=== PATIENT | male | born 1960 | race Hispanic/Latino ===

== ENCOUNTER 2019-02-05 13:04 | Inpatient (IN) | payer OTHER ==
[2019-02-05] MEDS ORDERED: Clindamycin/D5W 900 mg/50 ml Premix Bag ONE (13:45)
[2019-02-05] MEDS ORDERED: Ondansetron PF 4 MG/2 ML Vial ONE (13:45)
[2019-02-05 13:52] LABS: Hemoglobin 11.6 g/dL (14.0-18.0); Mean Corpuscular HGB CONC 32.3 g/dL (32.0-36.0); Mean Corpuscular Hemoglobin 28.2 pg (27.0-31.0); Mean Corpuscular Volume 87.4 fL (78.0-98.0); Mean Platelet Volume 7.5 fL (7.4-10.4); Platelet Count 347 thou/uL (130-400); RBC Distribution Width 13.4 % (11.5-14.5); Red Blood Cell (RBC) Count 4.12 mill/uL (4.70-6.10); White Blood Cell (WBC) Count 21.4 thou/uL (4.8-10.8)
[2019-02-05] MEDS ORDERED: Piperacillin/Tazobactam 4.5 GM in Sodium Chloride 0.9% 100 ML IVPB SCH (14:00)
[2019-02-05] MEDS ORDERED: Vancomycin HCl 1.5 GM in Sodium Chloride 0.9% 250 ML 300 ML IVPB SCH (14:00)
[2019-02-05 14:06] LABS: ALT (SGPT) 12 U/L (8-55); AST (SGOT) 14 U/L (5-34); Albumin 4.1 g/dL (3.5-5.0); Alkaline Phosphatase 75 U/L (40-150); Anion Gap 19 mmol/L (10-20); BUN (Urea Nitrogen) 35 mg/dL (8.4-25.7); Band 20 % (5-11); Bilirubin, Total 0.6 mg/dL (0.2-1.2); Calc. Creatinine Clearance 0 mL/min (70-130); Calcium 9.1 mg/dL (7.8-10.44); Carbon Dioxide 21 mmol/L (22-29); Chloride 100 mmol/L (98-107); Estimated GFR-MDRD 50; Globulin 3.3 g/dL (2.4-3.5); Glucose 161 mg/dL (70-105); Lymphocytes 5 % (21-51); MDiff Complete? YES; Metamyelocyte 4 % (0-0); Monocytes 1 % (0-10); Neutrophil 69 % (42-75); Platelet Morphology Comment Appears Adequate; Polychromasia SLIGHT = 2-3 cells (100X) (0-2/hpf); Potassium 4.3 mmol/L (3.5-5.1); Protein, Total 7.4 g/dL (6.0-8.3); Reactive Lymphocytes 1 % (0-10); Sodium 136 mmol/L (136-145)
[2019-02-05] MEDS ORDERED: Acetaminophen 500 MG TAB ONE (14:54)
[2019-02-05] MEDS ORDERED: Promethazine HCl 25 MG/ML VIAL ONE (15:11)
[2019-02-05] MEDS ORDERED: Ibuprofen 800 MG TAB ONE (17:10)
[2019-02-05 17:47] LABS: Lactic Acid 1.2 mmol/L (0.5-2.2)
[2019-02-05] MEDS ORDERED: Norepinephrine 8 MG/0.9% NS 250 ML ONE (19:01)
--- NOTE | 2019-02-05 20:34 | RAD ---
FRONTAL RADIOGRAPH CHEST: 02/05/19 COMPARISON: None. HISTORY: Hypotension, sepsis. FINDINGS: Right sided vascular catheter is present, distal tip overlying the region of the right atrium. Heart and mediastinal contours are grossly unremarkable. There is mild pulmonary vascular prominence. There is mild hazy density in the medial left lung base, nonspecific. No lobar consolidation or alveolar e sarah. No pneumothorax. IMPRESSION: Right vascular catheter as above. POS: OFF
[2019-02-05] MEDS ORDERED: Ondansetron ODT 4 MG TAB PO PRN (21:08)
[2019-02-05] MEDS ORDERED: Ondansetron PF 4 MG/2 ML Vial IVP PRN (21:08)
[2019-02-05 22:10] LABS: Bilirubin Negative (Negative); Blood, Urine Negative (Negative); Clarity CLEAR (Clear); Glucose, Urine (Dipstick) Negative (Negative); Leukocyte Negative (Negative); Nitrite Negative (Negative); Protein, Urine (Dipstick) 100 mg/dL (Neg-Trace); Specific Gravity, Urine 1.011 (1.002-1.036); Urobilinogen 0.2 mg/dL (0.2-1.0); pH, Urine 5.5 (5.0-9.0)
[2019-02-05 22:11] LABS: Bacteria/HPF None Seen HPF (None Seen); Hyaline Casts/LPF 4-6 HYALINE CAST LPF (0-3 Hyaline); Pathc Cast-AUWi Flag 0.54 (0-2.49); RBC/HPF 0-3 HPF (0-3); Squamous Epithelial None Seen HPF (0-3); WBC/HPF 0-3 HPF (0-3)
[2019-02-05 23:00] VITALS: BMI 26.8
[2019-02-05] MEDS: Sodium Chloride 0.9% 1,000 ML IV SCH (23:08)
[2019-02-05] MEDS ORDERED: Norepinephrine 8 MG/250 ML BAG IVPB PRN (23:20)
[2019-02-06] MEDS: Piperacillin/Tazobactam 4.5 GM in Sodium Chloride 0.9% 100 ML IVPB SCH ×5 (00:09→23:16)
[2019-02-06] MEDS: Acetaminophen 325 MG TAB PO PRN ×2 (01:39→23:18)
[2019-02-06] MEDS: Vancomycin HCl 1.25 GM in Sodium Chloride 0.9% 250 ML 250 ML IVPB SCH ×2 (02:59→14:58)
[2019-02-06 04:44] LABS: #Lymphocytes 0.8 thou/uL (1.20-3.40); #Monocytes 0.5 thou/uL (0.11-0.59); #Neutrophils 13.4 thou/uL (1.40-6.50); %Basophils 0.3 % (0.0-1.0); %Eosinophils 0.2 % (0.0-10.0); %Lymphocytes 5.3 % (21.0-51.0); %Monocytes 3.2 % (0.0-10.0); %Neutrophils 90.9 % (42.0-75.0); Hemoglobin 9.5 g/dL (14.0-18.0); Mean Corpuscular HGB CONC 32.2 g/dL (32.0-36.0); Mean Corpuscular Hemoglobin 28.4 pg (27.0-31.0); Mean Corpuscular Volume 88.1 fL (78.0-98.0); Mean Platelet Volume 7.6 fL (7.4-10.4); Platelet Count 284 thou/uL (130-400); RBC Distribution Width 13.6 % (11.5-14.5); Red Blood Cell (RBC) Count 3.35 mill/uL (4.70-6.10); White Blood Cell (WBC) Count 14.7 thou/uL (4.8-10.8)
[2019-02-06] MEDS ORDERED: Dextrose 5% in Water 1,000 ML IV PRN (04:55)
[2019-02-06] MEDS ORDERED: Dextrose 50% Abboject 50 ML SYRINGE SLOW IVP PRN (04:55)
[2019-02-06 05:06] LABS: Anion Gap 10 mmol/L (10-20); BUN (Urea Nitrogen) 33 mg/dL (8.4-25.7); Calc. Creatinine Clearance 85 mL/min (70-130); Carbon Dioxide 25 mmol/L (22-29); Chloride 110 mmol/L (98-107); Estimated GFR-MDRD 64; Glucose 195 mg/dL (70-105); Potassium 3.9 mmol/L (3.5-5.1); Sodium 141 mmol/L (136-145)
[2019-02-06] MEDS: HumaLOG 300 UNITS/3 ML VIAL SC PRN ×2 (05:54→12:20)
--- NOTE | 2019-02-06 08:15 | HP ---
PRIMARY CARE DOCTOR: The patient is an inmate. CODE STATUS: Full code. TIME OF EVALUATION: 10 p.m. CHIEF COMPLAINT: Right leg cellulitis. HISTORY OF PRESENT ILLNESS: This is a 58-year-old male patient with past medical history of coronary artery disease, status post stent, diabetes type 2, cirrhosis of the liver with hepatitis B and C treated and cured, esophageal varices, and hypertension, came to the hospital after having right lower extremity redness, tenderness, decreased range of motion due to pain, and infection. The patient also reported some subjective fever, chills, and nausea. Symptoms are severe, decrease in his ADLs. Symptoms have been present for 1 day. REVIEW OF SYSTEMS: CONSTITUTIONAL: The patient had fever, chills, generalized weakness. RESPIRATORY: No cough, sputum production, or shortness of breath. CARDIOVASCULAR: No chest pain or palpitation. GASTROINTESTINAL: Nausea. No vomiting, diarrhea, or abdominal pain. FIRER WATERTENDER: No dizziness, headache, or feeling lightheaded. GENITOURINARY: No burning on urination. EXTREMITIES: The patient has right lower extremity redness, swelling, tenderness, and pain. All other systems were reviewed and negative except for the findings mentioned above. PAST MEDICAL HISTORY: As mentioned in the HPI. SURGICAL HISTORY: Surgery to groin for gangrene. PSYCHIATRIC HISTORY: No previous psych history. SOCIAL HISTORY: No alcohol. 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 Former tobacco user, smoked cigarettes, quit in 2010. FAMILY HISTORY: Reviewed and noncontributory for current presentation. KNOWN ALLERGIES: No known drug allergies. REPORTED MEDICATIONS: 1. Aspirin. 2. Chlorpheniramine. 3. Furosemide. 4. Gemfibrozil. 5. Lisinopril. 6. Loratadine. 7. Minocycline. 8. Novolin. 9. Metformin. 10. Ibuprofen. PHYSICAL EXAMINATION: VITAL SIGNS: On presentation, blood pressure 118/58 with heart rate 103, respiratory rate was 16, temperature 100.2, pain was 0/10, oxygen saturation was 100 on room air. GENERAL APPEARANCE: The patient is alert and oriented, in mild distress, likely secondary to fever. HEENT: Eyes; normal conjunctivae. Moist oral mucosa. Anicteric. NECK: No JVD. RESPIRATORY: Bilateral air entry. No rales. No wheezes. Symmetric expansion. CARDIOVASCULAR: The patient is mildly tachycardic. Normal rhythm. No murmurs. No gallop. Bilateral leg edema, mostly on the right. ABDOMEN: Soft. Normal bowel sounds. MUSCULOSKELETAL: Baseline range of motion and strength. No tenderness except for the right lower extremity as described in HPI. The patient has redness, decreased range of motion, tenderness, inability to ambulate due to leg pain. SKIN: Warm, intact. No pallor. No rash. No redness except for the findings described in the musculoskeletal system. Peripheral pulses are present. Capillary refill seems to intact. NEUROLOGIC: No evidence of any new focal weakness. Baseline speech. Cranial nerves seems to be intact. PSYCHIATRY: The patient is in good mood. No anxiety. Optimum judgment. DIAGNOSTIC DATA: EKG was reviewed. The patient has a normal sinus rhythm with a rate of 99, TX 138, QRS 70, QT corrected 446. Chest x-ray was reviewed. No abnormalities seen. The patient has a right subclavian with tip close to right atrium. LABORATORY DATA: Labs were reviewed. The patient presented with white count 21.4, hemoglobin 11.6, MCV 87.4, platelet count 347 with bandemia of 20. Sodium 136, potassium 4.3, chloride 100, carbon dioxide 21, anion gap 19, BUN 35; creatinine 1.46, no previous values to compare; GFR 50, glucose 161. Lactic acid 3.2, repeat one 1.2. LFTs were negative. UA was done, it was normal. ASSESSMENT AND PLAN: The patient will be placed in the hospital with following medical problems. 1. Sepsis. The patient presented with fever and leukocytosis of 21.4, initially in respiratory failure, reason likely secondary to severe chills, this has resolved. The patient has been started on antibiotics and we will continue for now, follow cultures, adjust treatment as per sensitivity. 2. Possible acute kidney injury. There is no previous values to compare how was the creatinine before. The patient is receiving IV fluids. We will monitor. If not improving, might need to consult Nephrology for assistance with outpatient. 3. Uncontrolled diabetes with blood sugar 161. We will place the patient on sliding scale for optimal control. The patient is hyperglycemic. 4. Normocytic anemia, seems to be chronic. There is a drop in hemoglobin from the first draw to the second one; however, seems to be dilutional. We will monitor. We will treat accordingly. 5. Lactic acidosis, likely secondary to the initial presentation of sepsis, repeat one is normal. 6. Deep venous thrombosis prophylaxis. Job ID: [id number]
[2019-02-06] MEDS: Enoxaparin Sodium 40 MG/0.4 ML SYRINGE SC SCH (10:39)
[2019-02-06] MEDS: Sodium Chloride 0.9% 1,000 ML IV SCH ×3 (10:39→16:30)
--- NOTE | 2019-02-06 14:58 | PDOC.PN ---
- Subjective Encounter Start Date: 02/06/19 Encounter Start Time: 14:56 Subjective: feels better.no new complaints. eating better.no leg pain -: no N/V/D.no CP/SOB - Objective Resuscitation Status - Order Detail: 02/05/19 21:08 Resuscitation Status Routine Resuscitation Status: FULL: Full Resuscitation MAR Reviewed: Yes Vital Signs & Weight: Vital Signs (12 hours) Temp Pulse Ox 02/06/19 13:00 98.6 F 02/06/19 08:00 100.5 F H 100 02/06/19 04:00 98 F Weight Admit Weight 192 lb 7.417 oz Weight 192 lb 7.417 oz Most Recent Monitor Data Heart Rate from ECG 80 NIBP 120/63 NIBP BP-Mean 82 Respiration from ECG 15 SpO2 93 I&O: 02/05/19 02/06/19 02/07/19 06:59 06:59 06:59 Intake Total 1884 400 Output Total 450 1000 Balance 1434 -600 Result Diagrams: 02/06/19 04:20 02/06/19 04:20 Additional Labs: Accuchecks 02/06/19 12:19 POC Glucose 422 H Microbiology 02/05/19 13:39 Venous blood - Left Hand Blood Culture - Preliminary Specimen has been received and culture in progress. No Growth to date. 02/05/19 13:35 Venous blood - Right Hand Blood Culture - Preliminary Specimen has been received and culture in progress. No Growth to date. Laboratory Tests 02/05/19 02/05/19 02/05/19 13:35 13:35 13:35 WBC 21.4 H Creatinine 1.46 H Lactic Acid 3.2 H 02/05/19 02/06/19 02/06/19 17:16 04:20 04:20 WBC 14.7 H Creatinine 1.17 Lactic Acid 1.2 Phys Exam - Physical Examination Constitutional: NAD HEENT: PERRLA, moist MMs, sclera anicteric, oral pharynx no lesions Neck: no nodes, no JVD, supple, full ROM Respiratory: no wheezing, no rales, no rhonchi, clear to auscultation bilateral Cardiovascular: RRR, no significant murmur, gallop Gastrointestinal: soft, non-tender, positive bowel sounds Musculoskeletal: pulses present, edema present R leg erythema all around on calf & lower leg w edema & warmth-receeding Neurological: non-focal, normal sensation, moves all 4 limbs Psychiatric: normal affect, A&O x 3 Skin: no rash Dx/Plan (1) Sepsis Code(s): A41.9 - SEPSIS, UNSPECIFIED ORGANISM Status: Acute Comment: due to cellulitis. On IV ABx empirically.broad spectrum.cont. Monitor Cx (2) Cellulitis, leg Code(s): L03.119 - CELLULITIS OF UNSPECIFIED PART OF LIMB Status: Acute Qualifiers: Laterality: right Qualified Code(s): L03.115 - Cellulitis of right lower limb Comment: as #1 (3) MASOUD (acute kidney injury) Code(s): N17.9 - ACUTE KIDNEY FAILURE, UNSPECIFIED Status: Acute Comment: improving. on IVF. reduce rate .monitor.avoid nephrotoxins. Hold Metformin (4) Septic shock Code(s): A41.9 - SEPSIS, UNSPECIFIED ORGANISM; R65.21 - SEVERE SEPSIS WITH SEPTIC SHOCK Status: Acute Comment: Improved. Off of levophed. Monitor..cont IVF (5) DM2 (diabetes mellitus, type 2) Status: Acute (6) HTN (hypertension) Code(s): I10 - ESSENTIAL (PRIMARY) HYPERTENSION Status: Chronic (7) H/O type B viral hepatitis Code(s): Z86.19 - PERSONAL HISTORY OF OTHER INFECTIOUS AND PARASITIC DISEASES Status: Chronic Comment: s/p Rx in past (8) Cirrhosis Code(s): K74.60 - UNSPECIFIED CIRRHOSIS OF LIVER Status: Chronic Qualifiers: Ascites presence: without ascites Comment: stable (9) H/O esophageal varices Code(s): Z87.19 - PERSONAL HISTORY OF OTHER DISEASES OF THE DIGESTIVE SYSTEM Status: Chronic Comment: stable - Plan continue antibiotics, DVT proph w/SCDs Hold lasix and metformin due to masoud.restart lisinopril as BP higher from -: tomorrow.monitor labs -: Ok to transfer to [facility]. HD stable. -: iss w accuchecks for diabetes * . Review of Systems - Review of Systems Constitutional: fever, chills. negative: sweats, weakness, malaise, other Respiratory: negative: Cough, Dry, Shortness of Breath, Hemoptysis, SOB with Excertion, Pleuritic Pain, Sputum, Wheezing Cardiovascular: edema. negative: chest pain, palpitations, orthopnea, paroxysmal nocturnal dyspnea, light headedness, other Gastrointestinal: negative: Nausea, Vomiting, Abdominal Pain, Diarrhea, Constipation, Melena, Hematochezia, Other Genitourinary: negative: Dysuria, Frequency, Incontinence, Hematuria, Retention , Other Musculoskeletal: negative: Neck Pain, Shoulder Pain, Arm Pain, Back Pain, Hand Pain, Leg Pain, Foot Pain, Other Neurological: negative: Weakness, Numbness, Incoordination, Change in Speech, Confusion, Seizures, Other - Medications/Allergies Allergies/Adverse Reactions: Allergies Allergy/AdvReac Type Severity Reaction Status Date / Time No Known Allergies Allergy Unverified 02/05/19 13:50 Medications: Current Medications Acetaminophen (Tylenol) 650 mg PO Q4H PRN PRN Reason: Headache/Fever/Mild Pain (1-3) Last Admin: 02/06/19 01:39 Dose: 650 mg Aspirin (Ecotrin) 81 mg PO DAILY [facility] Dextrose/Water (Dextrose 50%) 25 gm SLOW IVP PRN PRN PRN Reason: Hypoglycemia Enoxaparin Sodium (Lovenox) 40 mg SC 0900 [facility] Last Admin: 02/06/19 10:39 Dose: 40 mg Glucagon (Glucagon) 1 mg IM PRN PRN PRN Reason: Hypoglycemia Piperacillin Sod/Tazobactam (Sod 4.5 gm/ Sodium Chloride) 100 mls @ 200 mls/hr IVPB Q6HR [facility] Last Admin: 02/06/19 10:39 Dose: 100 mls Sodium Chloride (Normal Saline 0.9%) 1,000 mls @ 125 mls/hr IV .Q8H [facility] Last Admin: 02/06/19 10:41 Dose: 1,000 mls Vancomycin HCl 1.25 gm/ Sodium (Chloride) 250 mls @ 166.667 mls/hr IVPB 0300, 1500 [facility] Last Admin: 02/06/19 02:59 Dose: 250 mls Norepinephrine Bitartrate (Levophed) 250 mls @ 0 mls/hr IVPB INF PRN; Protocol PRN Reason: Blood Pressure Dextrose/Water (D5w) 1,000 mls @ 0 mls/hr IV .Q0M PRN PRN Reason: Hypoglycemia Insulin Human Lispro (Humalog) 0 units SC .MILD SLIDING SCALE PRN PRN Reason: Mild Correctional Scale Last Admin: 02/06/19 12:20 Dose: 6 unit Insulin Human NPH (Humulin N) 10 unit SC QAM [facility] Lisinopril (Zestril) 20 mg PO DAILY [facility] Miscellaneous Medication (Pharmacy To Dose) 1 each IVPB PRN PRN PRN Reason: PHARMACY TO DOSE Ondansetron HCl (Zofran Odt) 4 mg PO Q6H PRN PRN Reason: Nausea/Vomiting Ondansetron HCl (Zofran) 4 mg IVP Q6H PRN PRN Reason: Nausea/Vomiting
--- NOTE | 2019-02-06 23:00 | CON ---
DATE OF CONSULTATION: HISTORY OF PRESENT ILLNESS: This is a 58-year-old male who has been complaining of erythema and discomfort in his legs for the past couple of days. He said he had fever with this and some chills. He says he is improving now. He has been started on antibiotics. The outline of the erythematous area on his extremity shows regression of the erythema. PAST MEDICAL HISTORY: Remarkable for 1. Coronary stenting in the past. 2. Diabetes. 3. Cirrhosis. 4. History of hepatitis B and C. 5. History of varices. 6. 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 This was in the early 90s [place]. FAMILY HISTORY: Negative for lung disease in early age. SOCIAL HISTORY: He is in the [facility]. He is not smoking now for 8 years. He used to use cocaine, says he does not now. REVIEW OF SYSTEMS: A 10-point review of systems is otherwise negative. CURRENT MEDICATIONS: Medications prior to admission include; 1. Aspirin. 2. Chlorpheniramine. 3. Lasix. 4. Gemfibrozil. 5. Lisinopril. 6. Loratadine. 7. Minocycline. 8. Novolin insulin. 9. Metformin. 10. Ibuprofen. PHYSICAL EXAMINATION: GENERAL: Very pleasant inmate. No distress. VITAL SIGNS: Heart rate 80, respiratory rate 16, blood pressure 130/69. HEENT: Pupils are equal. Sclerae are anicteric. Extraocular movements are full. NECK: Supple. No lymphadenopathy. LUNGS: Clear. HEART: Regular rhythm. S1 and S2 are normal. No gallop is heard. ABDOMEN: Soft and nontender. He has an SCD on his left lower extremity. His right lower extremity, below the knee, he has area of erythema outlined with a pen. IMPRESSION: 1. Cellulitis of his left lower extremity. 2. History of diabetes. 3. History of Theodore gangrene. 4. History of coronary artery disease. 5. History of drug use in the past. 6. Tobacco use in the past with no clinical evidence of chronic obstructive pulmonary disease. 7. History of hepatitis with cirrhosis. 8. History of esophageal varices with no bleeding this admission. Microbiology has been reviewed. Blood cultures are negative. His lab work is remarkable for anemia with a hemoglobin went from 11.6 to 9.5. I suspect this is anemia of chronic disease. I would be happy to follow with the other physicians caring for him. He is stable to move out of the Critical Care Unit. Job ID: [id number] MTDD
[2019-02-07 02:19] LABS: Vancomycin, Trough 14.8 ug/mL
[2019-02-07] MEDS: Vancomycin HCl 1.5 GM in Sodium Chloride 0.9% 250 ML 300 ML IVPB SCH ×2 (03:23→16:53)
[2019-02-07] MEDS: Sodium Chloride 0.9% 1,000 ML IV SCH (03:25)
[2019-02-07] MEDS: Vancomycin HCl 1.25 GM in Sodium Chloride 0.9% 250 ML 250 ML IVPB SCH (04:34)
[2019-02-07] MEDS: Piperacillin/Tazobactam 4.5 GM in Sodium Chloride 0.9% 100 ML IVPB SCH ×4 (05:20→23:24)
[2019-02-07] MEDS: HumaLOG 300 UNITS/3 ML VIAL SC PRN ×3 (05:23→16:54)
[2019-02-07] MEDS: Enoxaparin Sodium 40 MG/0.4 ML SYRINGE SC SCH (09:45)
[2019-02-07] MEDS: Lisinopril 20 MG TAB PO SCH (09:45)
[2019-02-07] MEDS: Aspirin 81 mg Enteric Coated Tablet PO SCH (09:46)
[2019-02-07] MEDS: NPH, Human Insulin Isophane 300 UNIT/3 ML VIAL SC SCH (09:46)
[2019-02-07] MEDS: Acetaminophen 325 MG TAB PO PRN (11:51)
--- NOTE | 2019-02-07 13:55 | PRG ---
DATE OF SERVICE: 02/07/2019 SUBJECTIVE: Marky Morrow continues to have fewer complaints regarding his leg. OBJECTIVE: VITAL SIGNS: He did have a temperature this morning up to 101, heart rate is 99, blood pressure 146/75, and respiratory rate is 20. LUNGS: Clear. HEART: Regular rhythm. S1 and S2 are normal. ABDOMEN: Soft. EXTREMITIES: He has less erythema in his right lower extremity. LABORATORY DATA: There is no CBC today. His glucoses in the last 24 hours have ranged from 173 to 422. IMPRESSION: 1. Cellulitis, still with fever. 2. Diabetes. 3. History of Theodore gangrene. 4. History of hepatitis, poorly treated. 5. History of coronary artery disease. 6. History of cirrhosis. There is nothing to suggest that he has spontaneous bacterial peritonitis clinically. PLAN: He appears to be clinically improving other than the fever. Continue antimicrobial therapy. Pulmonary Medicine will sign off. Job ID: [id number]
--- NOTE | 2019-02-07 14:21 | ULT ---
Exam: Right lower extremity venous ultrasound with Doppler HISTORY: Evaluate for thrombus. COMPARISON: None TECHNIQUE: Grayscale, color flow, Doppler imaging and spectral waveform analysis performed of the rig ht lower extremity venous system FINDINGS: There is compressibility, presence of flow and augmentation in the common femoral vein, femoral vein and popliteal vein. There is flow in the greater saphenous vein, profunda femoral vein. There is flow in the posterior tibial vein. IMPRESSION: No evidence of thrombus in the right lower extremity deep venous system
--- NOTE | 2019-02-07 15:31 | PDOC.PN ---
- Subjective Encounter Start Date: 02/07/19 Encounter Start Time: 15:31 Subjective: feels weak and walker sbeen having fever -: Leg about the same -: no N/V.has some loose stools.no abd pain.good appetite - Objective Resuscitation Status - Order Detail: 02/05/19 21:08 Resuscitation Status Routine Resuscitation Status: FULL: Full Resuscitation MAR Reviewed: Yes Vital Signs & Weight: Vital Signs (12 hours) Temp Pulse Resp BP BP Pulse Ox 02/07/19 11:00 101.1 F H 99 20 170/77 H 95 02/07/19 09:45 146/75 H 02/07/19 08:00 98.7 F 88 18 146/75 H 98 02/07/19 04:30 99.2 F 82 16 155/70 H 97 Weight Admit Weight 192 lb 7.417 oz Weight 192 lb 7.417 oz Most Recent Monitor Data Heart Rate from ECG 80 NIBP 130/69 NIBP BP-Mean 89 Respiration from ECG 19 SpO2 93 I&O: 02/06/19 02/07/19 02/08/19 06:59 06:59 06:59 Intake Total 1884 1650 420 Output Total 450 1200 Balance 1434 450 420 Result Diagrams: 02/06/19 04:20 02/06/19 04:20 Additional Labs: Accuchecks 02/07/19 02/07/19 02/06/19 11:41 05:21 20:15 POC Glucose 229 H 193 H 240 H 02/06/19 16:53 POC Glucose 173 H Microbiology 02/05/19 21:56 Urine voided Urine Culture - Final NO GROWTH AT 36 HOURS 02/05/19 21:56 Urine voided Urine Culture - Preliminary NO GROWTH AT 12 HOURS 02/05/19 13:39 Venous blood - Left Hand Blood Culture - Preliminary Specimen has been received and culture in progress. No Growth to date. 02/05/19 13:39 Venous blood - Left Hand Blood Culture - Preliminary NO GROWTH AT 48 HOURS 02/05/19 13:35 Venous blood - Right Hand Blood Culture - Preliminary Specimen has been received and culture in progress. No Growth to date. 02/05/19 13:35 Venous blood - Right Hand Blood Culture - Preliminary NO GROWTH AT 48 HOURS Phys Exam - Physical Examination tired looking HEENT: PERRLA, moist MMs, sclera anicteric, oral pharynx no lesions Neck: no nodes, no JVD, supple, full ROM Respiratory: no wheezing, no rales, no rhonchi, clear to auscultation bilateral Cardiovascular: RRR, no significant murmur Gastrointestinal: soft, non-tender, no distention, positive bowel sounds Musculoskeletal: pulses present, edema present slightly more swollen in leg.erythem abetter. still warm Neurological: non-focal, normal sensation, moves all 4 limbs Psychiatric: normal affect, A&O x 3 Skin: no rash Dx/Plan (1) Sepsis Code(s): A41.9 - SEPSIS, UNSPECIFIED ORGANISM Status: Acute Comment: due to cellulitis. On IV ABx empirically.broad spectrum.cont. Monitor Cx (2) Cellulitis, leg Code(s): L03.119 - CELLULITIS OF UNSPECIFIED PART OF LIMB Status: Acute Qualifiers: Laterality: right Qualified Code(s): L03.115 - Cellulitis of right lower limb Comment: as #1 (3) MASOUD (acute kidney injury) Code(s): N17.9 - ACUTE KIDNEY FAILURE, UNSPECIFIED Status: Acute Comment: improving. on IVF. reduce rate .monitor.avoid nephrotoxins. Hold Metformin (4) Septic shock Code(s): A41.9 - SEPSIS, UNSPECIFIED ORGANISM; R65.21 - SEVERE SEPSIS WITH SEPTIC SHOCK Status: Acute Comment: Improved. Off of levophed. Monitor..cont IVF (5) DM2 (diabetes mellitus, type 2) Status: Acute (6) HTN (hypertension) Code(s): I10 - ESSENTIAL (PRIMARY) HYPERTENSION Status: Chronic (7) H/O type B viral hepatitis Code(s): Z86.19 - PERSONAL HISTORY OF OTHER INFECTIOUS AND PARASITIC DISEASES Status: Chronic Comment: s/p Rx in past (8) Cirrhosis Code(s): K74.60 - UNSPECIFIED CIRRHOSIS OF LIVER Status: Chronic Qualifiers: Ascites presence: without ascites Comment: stable (9) H/O esophageal varices Code(s): Z87.19 - PERSONAL HISTORY OF OTHER DISEASES OF THE DIGESTIVE SYSTEM Status: Chronic Comment: stable - Plan continue antibiotics, respiratory therapy, DVT proph w/SCDs Check C.Diff.add florastor for ABx associated diarrhea -: Doppler checked and negative for RLE DVT -: cont ABx and monitor clinical response. -: supportive care.BP high -add BB given h/o varices -: am labs.cbc,bmp * .IVF stopped due to Potential for flui dOL given h/o Liver cirrhosis. Lasix on hold due to MASOUD on presentation * restart lasix form tomorrow am.monitor renal Fx Review of Systems - Review of Systems Constitutional: fever, chills, weakness, malaise Respiratory: negative: Cough, Dry, Shortness of Breath, Hemoptysis, SOB with Excertion, Pleuritic Pain, Sputum, Wheezing Cardiovascular: negative: chest pain, palpitations, orthopnea, paroxysmal nocturnal dyspnea, edema, light headedness, other Gastrointestinal: Diarrhea. negative: Nausea, Vomiting, Abdominal Pain, Constipation, Melena, Hematochezia, Other Genitourinary: negative: Dysuria, Frequency, Incontinence, Hematuria, Retention , Other Musculoskeletal: negative: Neck Pain, Shoulder Pain, Arm Pain, Back Pain, Hand Pain, Leg Pain, Foot Pain, Other Skin: negative: Rash, Lesions, Erich, Bruising, Other Neurological: negative: Weakness, Numbness, Incoordination, Change in Speech, Confusion, Seizures, Other - Medications/Allergies Allergies/Adverse Reactions: Allergies Allergy/AdvReac Type Severity Reaction Status Date / Time No Known Allergies Allergy Unverified 02/05/19 13:50 Medications: Current Medications Acetaminophen (Tylenol) 650 mg PO Q4H PRN PRN Reason: Headache/Fever/Mild Pain (1-3) Last Admin: 02/07/19 11:51 Dose: 650 mg Aspirin (Ecotrin) 81 mg PO DAILY [facility] Last Admin: 02/07/19 09:46 Dose: 81 mg Dextrose/Water (Dextrose 50%) 25 gm SLOW IVP PRN PRN PRN Reason: Hypoglycemia Enoxaparin Sodium (Lovenox) 40 mg SC 0900 [facility] Last Admin: 02/07/19 09:45 Dose: 40 mg Glucagon (Glucagon) 1 mg IM PRN PRN PRN Reason: Hypoglycemia Piperacillin Sod/Tazobactam (Sod 4.5 gm/ Sodium Chloride) 100 mls @ 200 mls/hr IVPB Q6HR [facility] Last Admin: 02/07/19 11:52 Dose: 100 mls Dextrose/Water (D5w) 1,000 mls @ 0 mls/hr IV .Q0M PRN PRN Reason: Hypoglycemia Vancomycin HCl 1.5 gm/ Sodium (Chloride) 300 mls @ 200 mls/hr IVPB 0400,1600 [facility] Last Admin: 02/07/19 03:23 Dose: 300 mls Insulin Human Lispro (Humalog) 0 units SC .MILD SLIDING SCALE PRN PRN Reason: Mild Correctional Scale Last Admin: 02/07/19 11:52 Dose: 3 unit Insulin Human NPH (Humulin N) 10 unit SC QAM [facility] Last Admin: 02/07/19 09:46 Dose: 10 unit Lisinopril (Zestril) 20 mg PO DAILY [facility] Last Admin: 02/07/19 09:45 Dose: 20 mg Miscellaneous Medication (Pharmacy To Dose) 1 each IVPB PRN PRN PRN Reason: PHARMACY TO DOSE Ondansetron HCl (Zofran Odt) 4 mg PO Q6H PRN PRN Reason: Nausea/Vomiting Ondansetron HCl (Zofran) 4 mg IVP Q6H PRN PRN Reason: Nausea/Vomiting Saccharomyces Boulardii (Florastor) 250 mg PO BID [facility]
[2019-02-07] MEDS ORDERED: Sodium Chloride 0.9% 1,000 ML IV SCH (15:45)
[2019-02-07] MEDS: Propranolol 10 MG TAB PO SCH (19:46)
[2019-02-07] MEDS: Saccharomyces boulardii 250 MG CAP PO SCH (19:46)
[2019-02-08] MEDS: Vancomycin HCl 1.5 GM in Sodium Chloride 0.9% 250 ML 300 ML IVPB SCH (04:08)
[2019-02-08] MEDS: Piperacillin/Tazobactam 4.5 GM in Sodium Chloride 0.9% 100 ML IVPB SCH ×2 (06:29→12:39)
[2019-02-08] MEDS: HumaLOG 300 UNITS/3 ML VIAL SC PRN ×3 (06:29→17:52)
[2019-02-08 06:46] LABS: #Eosinphils 0.2 thou/uL (0.0-0.7); #Lymphocytes 1.9 thou/uL (1.20-3.40); #Monocytes 0.7 thou/uL (0.11-0.59); %Basophils 0.1 % (0.0-1.0); %Eosinophils 1.6 % (0.0-10.0); %Lymphocytes 16.4 % (21.0-51.0); %Monocytes 6.1 % (0.0-10.0); %Neutrophils 75.8 % (42.0-75.0); Hemoglobin 8.8 g/dL (14.0-18.0); Mean Corpuscular HGB CONC 32.8 g/dL (32.0-36.0); Mean Corpuscular Hemoglobin 28.7 pg (27.0-31.0); Mean Corpuscular Volume 87.5 fL (78.0-98.0); Platelet Count 262 thou/uL (130-400); RBC Distribution Width 13.2 % (11.5-14.5); Red Blood Cell (RBC) Count 3.07 mill/uL (4.70-6.10); White Blood Cell (WBC) Count 11.8 thou/uL (4.8-10.8)
[2019-02-08 07:05] LABS: Anion Gap 11 mmol/L (10-20); BUN (Urea Nitrogen) 10 mg/dL (8.4-25.7); Calc. Creatinine Clearance 136 mL/min (70-130); Calcium 8.7 mg/dL (7.8-10.44); Carbon Dioxide 22 mmol/L (22-29); Chloride 111 mmol/L (98-107); Estimated GFR-MDRD Greater than 90; Glucose 198 mg/dL (70-105); Potassium 3.7 mmol/L (3.5-5.1); Sodium 140 mmol/L (136-145)
--- NOTE | 2019-02-08 09:34 | PDOC.PN ---
- Subjective Encounter Start Date: 02/08/19 Encounter Start Time: 12:50 Subjective: Patient with improvement in lower extremity redness. Some low grade fever -: this AM, trending down. No N/V. - Objective Resuscitation Status - Order Detail: 02/05/19 21:08 Resuscitation Status Routine Resuscitation Status: FULL: Full Resuscitation MAR Reviewed: Yes Vital Signs & Weight: Vital Signs (12 hours) Temp Pulse Resp BP Pulse Ox 02/08/19 07:43 99.8 F H 84 20 142/68 H 93 L 02/08/19 05:26 98.6 F 79 16 156/80 H 95 02/08/19 00:00 98.9 F 77 16 128/74 95 Weight Admit Weight 192 lb 7.417 oz Weight 192 lb 7.417 oz Most Recent Monitor Data Heart Rate from ECG 80 NIBP 130/69 NIBP BP-Mean 89 Respiration from ECG 19 SpO2 93 I&O: 02/07/19 02/08/19 02/09/19 06:59 06:59 06:59 Intake Total 1650 660 Output Total 1200 Balance 450 660 Result Diagrams: 02/08/19 06:25 02/08/19 06:25 Additional Labs: Accuchecks 02/08/19 02/07/19 02/07/19 04:57 19:35 16:51 POC Glucose 206 H 211 H 232 H 02/07/19 11:41 POC Glucose 229 H Phys Exam - Physical Examination Constitutional: NAD HEENT: moist MMs Respiratory: no wheezing, no rales, no rhonchi Cardiovascular: RRR, no significant murmur Gastrointestinal: soft, non-tender, positive bowel sounds Musculoskeletal: edema present Right lower extremity cellulitis retreating from drawn line Neurological: non-focal, moves all 4 limbs Psychiatric: normal affect, A&O x 3 Dx/Plan (1) Sepsis Code(s): A41.9 - SEPSIS, UNSPECIFIED ORGANISM Status: Acute Comment: due to cellulitis. Cx negative. On Zosyn and Vanc since 02/05/19 (2) Cellulitis, leg Code(s): L03.119 - CELLULITIS OF UNSPECIFIED PART OF LIMB Status: Acute Qualifiers: Laterality: right Qualified Code(s): L03.115 - Cellulitis of right lower limb Comment: as #1 (3) MASOUD (acute kidney injury) Code(s): N17.9 - ACUTE KIDNEY FAILURE, UNSPECIFIED Status: Resolved Comment : resuming Lasix and Metformin (4) DM2 (diabetes mellitus, type 2) Status: Chronic (5) Cirrhosis Code(s): K74.60 - UNSPECIFIED CIRRHOSIS OF LIVER Status: Chronic Qualifiers: Ascites presence: without ascites Comment: stable (6) HTN (hypertension) Code(s): I10 - ESSENTIAL (PRIMARY) HYPERTENSION Status: Chronic (7) H/O esophageal varices Code(s): Z87.19 - PERSONAL HISTORY OF OTHER DISEASES OF THE DIGESTIVE SYSTEM Status: Chronic Comment: stable (8) H/O type B viral hepatitis Code(s): Z86.19 - PERSONAL HISTORY OF OTHER INFECTIOUS AND PARASITIC DISEASES Status: Chronic Comment: s/p Rx in past - Plan cont current plan of care, continue antibiotics, PT/OT, out of bed/ambulate switch to oral antibiotics and recheck in AM, if continued -: improvement and no more fever can be discharged. * . - Discharge Day Encounter end time: 13:00
[2019-02-08] MEDS ORDERED: Furosemide 40 MG TAB PO SCH (09:45)
[2019-02-08] MEDS: NPH, Human Insulin Isophane 300 UNIT/3 ML VIAL SC SCH (10:21)
[2019-02-08] MEDS: Saccharomyces boulardii 250 MG CAP PO SCH ×2 (10:21→20:24)
[2019-02-08] MEDS: Propranolol 10 MG TAB PO SCH ×2 (10:21→20:24)
[2019-02-08] MEDS: Enoxaparin Sodium 40 MG/0.4 ML SYRINGE SC SCH (10:22)
[2019-02-08] MEDS: Aspirin 81 mg Enteric Coated Tablet PO SCH (10:22)
[2019-02-08] MEDS: Lisinopril 20 MG TAB PO SCH (10:22)
[2019-02-08] MEDS ORDERED: Cephalexin 250 MG CAP PO SCH (12:00)
[2019-02-08] MEDS: Cephalexin 250 MG CAP PO SCH ×2 (15:17→20:24)
[2019-02-08 15:38] LABS: Vancomycin, Trough 14.9 ug/mL
[2019-02-08] MEDS: metFORMIN 500 MG TAB PO SCH (17:52)
[2019-02-08] MEDS: Furosemide 40 MG TAB PO SCH (20:24)
[2019-02-08] MEDS: Acetaminophen 325 MG TAB PO PRN (22:20)
[2019-02-09] MEDS: Cephalexin 250 MG CAP PO SCH ×4 (01:18→20:01)
[2019-02-09 06:41] LABS: #Basophils 0.1 thou/uL (0.0-0.2); #Eosinphils 0.3 thou/uL (0.0-0.7); #Lymphocytes 2.4 thou/uL (1.20-3.40); #Monocytes 0.9 thou/uL (0.11-0.59); #Neutrophils 7.1 thou/uL (1.40-6.50); %Basophils 0.6 % (0.0-1.0); %Eosinophils 2.9 % (0.0-10.0); %Lymphocytes 22.6 % (21.0-51.0); %Monocytes 8.2 % (0.0-10.0); %Neutrophils 65.8 % (42.0-75.0); Hemoglobin 9.3 g/dL (14.0-18.0); Mean Corpuscular HGB CONC 32.9 g/dL (32.0-36.0); Mean Corpuscular Hemoglobin 28.7 pg (27.0-31.0); Mean Corpuscular Volume 87.5 fL (78.0-98.0); Mean Platelet Volume 8.2 fL (7.4-10.4); Platelet Count 305 thou/uL (130-400); RBC Distribution Width 13.3 % (11.5-14.5); Red Blood Cell (RBC) Count 3.22 mill/uL (4.70-6.10); White Blood Cell (WBC) Count 10.8 thou/uL (4.8-10.8)
[2019-02-09 07:00] LABS: Anion Gap 12 mmol/L (10-20); BUN (Urea Nitrogen) 12 mg/dL (8.4-25.7); Calc. Creatinine Clearance 129 mL/min (70-130); Calcium 9.2 mg/dL (7.8-10.44); Carbon Dioxide 23 mmol/L (22-29); Chloride 109 mmol/L (98-107); Estimated GFR-MDRD Greater than 90; Glucose 135 mg/dL (70-105); Potassium 3.3 mmol/L (3.5-5.1); Sodium 141 mmol/L (136-145)
[2019-02-09] MEDS: Saccharomyces boulardii 250 MG CAP PO SCH ×2 (09:05→20:01)
[2019-02-09] MEDS: Lisinopril 20 MG TAB PO SCH (09:05)
[2019-02-09] MEDS: metFORMIN 500 MG TAB PO SCH ×2 (09:05→17:29)
[2019-02-09] MEDS: Furosemide 40 MG TAB PO SCH ×2 (09:05→20:01)
[2019-02-09] MEDS: Enoxaparin Sodium 40 MG/0.4 ML SYRINGE SC SCH (09:06)
[2019-02-09] MEDS: Aspirin 81 mg Enteric Coated Tablet PO SCH (09:06)
[2019-02-09] MEDS: NPH, Human Insulin Isophane 300 UNIT/3 ML VIAL SC SCH (09:07)
[2019-02-09] MEDS: Propranolol 10 MG TAB PO SCH ×2 (09:11→20:01)
[2019-02-09] MEDS: Acetaminophen 325 MG TAB PO PRN ×3 (11:32→20:02)
[2019-02-09] MEDS: HumaLOG 300 UNITS/3 ML VIAL SC PRN ×2 (13:06→17:29)
--- NOTE | 2019-02-09 23:35 | PDOC.PN ---
- Subjective Encounter Start Date: 02/09/19 Encounter Start Time: 11:10 Comolains of some increased pain in the right leg. knee hurts. - Objective Resuscitation Status - Order Detail: 02/05/19 21:08 Resuscitation Status Routine Resuscitation Status: FULL: Full Resuscitation Vital Signs & Weight: Vital Signs (12 hours) Temp Pulse Resp BP Pulse Ox 02/09/19 20:00 99 02/09/19 19:23 97.7 F 79 18 158/75 H 99 02/09/19 15:50 141/68 H Weight Admit Weight 192 lb 7.417 oz Weight 192 lb 7.417 oz Most Recent Monitor Data Heart Rate from ECG 80 NIBP 130/69 NIBP BP-Mean 89 Respiration from ECG 19 SpO2 93 I&O: 02/08/19 02/09/19 02/10/19 06:59 06:59 06:59 Intake Total 660 1800 1040 Output Total 1160 1200 Balance 660 640 -160 Result Diagrams: 02/09/19 05:49 02/09/19 05:49 Additional Labs: Accuchecks 02/09/19 02/09/19 02/09/19 19:22 16:21 12:22 POC Glucose 159 H 160 H 160 H 02/09/19 02/09/19 04:57 04:35 POC Glucose 137 H 129 H Phys Exam - Physical Examination Constitutional: NAD Respiratory: no wheezing, no rales, no rhonchi, clear to auscultation bilateral Cardiovascular: RRR, no significant murmur Gastrointestinal: soft, non-tender, no distention R knee effusion. not erythematous. Calf erythema is modest. improving. Neurological: non-focal Psychiatric: normal affect, A&O x 3 Dx/Plan (1) Knee effusion, right Code(s): M25.461 - EFFUSION, RIGHT KNEE Status: Acute (2) Cellulitis, leg Code(s): L03.119 - CELLULITIS OF UNSPECIFIED PART OF LIMB Status: Acute Qualifiers: Laterality: right Qualified Code(s): L03.115 - Cellulitis of right lower limb Comment: as #1 (3) Cirrhosis Code(s): K74.60 - UNSPECIFIED CIRRHOSIS OF LIVER Status: Chronic Qualifiers: Ascites presence: without ascites Comment: stable (4) DM2 (diabetes mellitus, type 2) Status: Chronic (5) HTN (hypertension) Code(s): I10 - ESSENTIAL (PRIMARY) HYPERTENSION Status: Chronic - Plan * Cellulitis is improving * Now has a knee joint edfusion. may be reactive, but may be septic. looks benign. Watch one more day. If stable tomorrow can likely disvharge with PO abx to infirmiry.
[2019-02-10] MEDS: Acetaminophen 325 MG TAB PO PRN ×4 (00:39→14:29)
[2019-02-10] MEDS: Cephalexin 250 MG CAP PO SCH ×2 (01:27→09:02)
[2019-02-10] MEDS: HumaLOG 300 UNITS/3 ML VIAL SC PRN ×3 (05:15→17:08)
[2019-02-10 05:21] LABS: #Eosinphils 0.1 thou/uL (0.0-0.7); #Lymphocytes 1.7 thou/uL (1.20-3.40); #Monocytes 1.2 thou/uL (0.11-0.59); #Neutrophils 6.6 thou/uL (1.40-6.50); %Basophils 0.3 % (0.0-1.0); %Eosinophils 1.2 % (0.0-10.0); %Lymphocytes 17.7 % (21.0-51.0); %Monocytes 11.9 % (0.0-10.0); %Neutrophils 68.9 % (42.0-75.0); Hemoglobin 8.7 g/dL (14.0-18.0); Mean Corpuscular HGB CONC 33.4 g/dL (32.0-36.0); Mean Corpuscular Hemoglobin 28.8 pg (27.0-31.0); Mean Corpuscular Volume 86.3 fL (78.0-98.0); Mean Platelet Volume 7.7 fL (7.4-10.4); Platelet Count 325 thou/uL (130-400); RBC Distribution Width 13.3 % (11.5-14.5); Red Blood Cell (RBC) Count 3.03 mill/uL (4.70-6.10); White Blood Cell (WBC) Count 9.7 thou/uL (4.8-10.8)
[2019-02-10 05:51] LABS: Anion Gap 11 mmol/L (10-20); BUN (Urea Nitrogen) 10 mg/dL (8.4-25.7); Calc. Creatinine Clearance 140 mL/min (70-130); Calcium 8.5 mg/dL (7.8-10.44); Carbon Dioxide 24 mmol/L (22-29); Chloride 106 mmol/L (98-107); Estimated GFR-MDRD Greater than 90; Glucose 186 mg/dL (70-105); Potassium 3.1 mmol/L (3.5-5.1); Sodium 138 mmol/L (136-145)
[2019-02-10] MEDS ORDERED: Potassium Chloride 20 MEQ TAB PO SCH (08:30)
[2019-02-10] MEDS: metFORMIN 500 MG TAB PO SCH ×2 (09:02→17:07)
[2019-02-10] MEDS: Enoxaparin Sodium 40 MG/0.4 ML SYRINGE SC SCH (09:03)
[2019-02-10] MEDS: Aspirin 81 mg Enteric Coated Tablet PO SCH (09:03)
[2019-02-10] MEDS: Furosemide 40 MG TAB PO SCH ×2 (09:03→19:44)
[2019-02-10] MEDS: Saccharomyces boulardii 250 MG CAP PO SCH ×2 (09:03→19:44)
[2019-02-10] MEDS: Lisinopril 20 MG TAB PO SCH (09:03)
[2019-02-10] MEDS: Propranolol 10 MG TAB PO SCH ×2 (09:03→19:44)
[2019-02-10] MEDS: NPH, Human Insulin Isophane 300 UNIT/3 ML VIAL SC SCH (09:04)
[2019-02-10] MEDS ORDERED: Magnesium Sulfate 4 GM in Sodium Chloride 0.9% 250 ML 250 ML IVPB SCH (10:00)
[2019-02-10] MEDS: traMADol HCl 50 MG TAB PO PRN (10:39)
[2019-02-10] MEDS: Potassium Chloride 20 MEQ TAB PO SCH ×2 (11:37→17:07)
[2019-02-10] MEDS ORDERED: Lidocaine 1% (PF) 30 ML VIAL ONE (11:59)
--- NOTE | 2019-02-10 12:57 | RAD ---
RIGHT KNEE 5 VIEWS: Date: 02/10/19 HISTORY: Knee pain and swelling. FINDINGS: Mild degenerative change. Mild spurring from the tibial spine and lateral tibial condyle. Mild narrow ing of the medial joint space. Mild spurring from the posterior patella. There is a small joint effusion noted in the suprapatellar region. No fracture or acute abnormality. IMPRESSION: Mild degenerative change. Evidence of joint effusion. No acute process apparent. POS: OFF
[2019-02-10] MEDS ORDERED: Vancomycin HCl 1 GM in Premix Bag 1 BAG IVPB SCH (13:30)
[2019-02-10 13:52] LABS: BF Color Yellow; Body Fluid Source Synovial Fluid; Clarity Cloudy/Turbid (Clear); Tube # EDTA
[2019-02-10 13:53] LABS: RBC Count-Automated 57000 /cumm; WBC/NonHematic-Auto 53900 /cumm
[2019-02-10] MEDS: cefTRIAXone\\ROCEPHIN 2 GM in Sodium Chloride 0.9% 100 ML IVPB SCH (14:23)
[2019-02-10 14:27] LABS: BF Segmented Neutrophils 98 %; Cell Count Non Hematic 2 %
[2019-02-10] MEDS: Vancomycin HCl 1.5 GM in Sodium Chloride 0.9% 250 ML 300 ML IVPB SCH (15:44)
--- NOTE | 2019-02-10 15:47 | PDOC.PN ---
- Subjective Encounter Start Date: 02/10/19 Encounter Start Time: 12:00 Patient seen and examined for Sepsis. Left knee swelling worsening. Diarrhea slowing down. Fever +. No new complaints. No overnight events - Objective Resuscitation Status - Order Detail: 02/05/19 21:08 Resuscitation Status Routine Resuscitation Status: FULL: Full Resuscitation MAR Reviewed: Yes Vital Signs & Weight: Vital Signs (12 hours) Temp Pulse Resp BP BP Pulse Ox 02/10/19 13:28 102.9 F H 02/10/19 11:38 159/71 H 02/10/19 11:00 100.8 F H 98 20 179/74 H 97 02/10/19 09:03 166/75 H 02/10/19 08:00 98.7 F 81 18 166/75 H 100 02/10/19 04:00 98.9 F 74 18 152/77 H 99 Weight Admit Weight 192 lb 7.417 oz Weight 192 lb 7.417 oz Most Recent Monitor Data Heart Rate from ECG 80 NIBP 130/69 NIBP BP-Mean 89 Respiration from ECG 19 SpO2 93 I&O: 02/09/19 02/10/19 02/11/19 06:59 06:59 06:59 Intake Total 1800 2000 Output Total 1160 2040 Balance 640 -40 Result Diagrams: 02/10/19 05:00 02/10/19 05:00 Additional Labs: Accuchecks 02/10/19 02/10/19 02/09/19 11:05 04:43 19:22 POC Glucose 197 H 190 H 159 H 02/09/19 16:21 POC Glucose 160 H Radiology Reviewed by me: Yes (CXR - Neg) Phys Exam - Physical Examination Constitutional: NAD Respiratory: no wheezing, no rales, no rhonchi, clear to auscultation bilateral Cardiovascular: RRR, no rub no heaves/pulsations Gastrointestinal: soft, non-tender, no distention, positive bowel sounds Musculoskeletal: pulses present, edema present Neurological: non-focal, normal sensation, moves all 4 limbs Psychiatric: normal affect, A&O x 3 Skin: no rash Dx/Plan - Plan PT/OT, DVT proph w/SCDs IMPRESSION: Severe Sepsis with acute organ dysfunction/Septic shock due to RLE Cellulitis Hypokalemia/Hypomagnesemia Right knee effusion - r/o Septic arthritis DM2 CAD Cirrhosis Antibiotic associated diarrhea - C diff negative Chronic Anemia h/o Fourniers gangrene h/o Esophageal Varices PLAN: Replace Potassium/Magnessium Change Atbx to IV Vancomycin/Ceftriaxone Check CRP Knee XR Cont other meds as below Consult Orthopedic for Joint aspiration Hold Lovenox due to Anemia Check PT/INR in AM AM labs Check CRP Monitor Vancomycin level Review of Systems - Review of Systems Respiratory: negative: Cough, Dry, Shortness of Breath, Hemoptysis, SOB with Excertion, Pleuritic Pain, Sputum, Wheezing Cardiovascular: negative: chest pain, palpitations, orthopnea, paroxysmal nocturnal dyspnea, edema, light headedness, other Gastrointestinal: negative: Nausea, Vomiting, Abdominal Pain, Diarrhea, Constipation, Melena, Hematochezia, Other - Medications/Allergies Allergies/Adverse Reactions: Allergies Allergy/AdvReac Type Severity Reaction Status Date / Time No Known Allergies Allergy Unverified 02/05/19 13:50 Medications: Current Medications Acetaminophen (Tylenol) 650 mg PO Q4H PRN PRN Reason: Headache/Fever/Mild Pain (1-3) Last Admin: 02/10/19 14:29 Dose: 650 mg Acetaminophen/Codeine Phosphate (Tylenol #3) 1 tab PO Q4H PRN PRN Reason: Moderate Pain (4-6) Aspirin (Ecotrin) 81 mg PO DAILY [facility] Last Admin: 02/10/19 09:03 Dose: 81 mg Dextrose/Water (Dextrose 50%) 25 gm SLOW IVP PRN PRN PRN Reason: Hypoglycemia Enoxaparin Sodium (Lovenox) 40 mg SC 0900 [facility] Last Admin: 02/10/19 09:03 Dose: 40 mg Furosemide (Lasix) 40 mg PO BID [facility] Last Admin: 02/10/19 09:03 Dose: 40 mg Glucagon (Glucagon) 1 mg IM PRN PRN PRN Reason: Hypoglycemia Dextrose/Water (D5w) 1,000 mls @ 0 mls/hr IV .Q0M PRN PRN Reason: Hypoglycemia Ceftriaxone Sodium 2 gm/ (Sodium Chloride) 100 mls @ 200 mls/hr IVPB 1400 [facility] Last Admin: 02/10/19 14:23 Dose: 100 mls Vancomycin HCl 1.5 gm/ Sodium (Chloride) 300 mls @ 200 mls/hr IVPB 0300,1500 [facility] Last Admin: 02/10/19 15:44 Dose: 300 mls Insulin Human Lispro (Humalog) 0 units SC .MILD SLIDING SCALE PRN PRN Reason: Mild Correctional Scale Last Admin: 02/10/19 11:39 Dose: 2 unit Insulin Human NPH (Humulin N) [facility] [place] Last Admin: 02/10/19 09:04 Dose: 10 unit Lisinopril (Zestril) 20 mg PO DAILY [facility] Last Admin: 02/10/19 09:03 Dose: 20 mg Metformin HCl (Glucophage) 1,000 mg PO BID-[facility] Last Admin: 02/10/19 09:02 Dose: 1,000 mg Miscellaneous Medication (Pharmacy To Dose) 1 each IVPB .VANCOMYCIN [facility] Ondansetron HCl (Zofran Odt) 4 mg PO Q6H PRN PRN Reason: Nausea/Vomiting Ondansetron HCl (Zofran) 4 mg IVP Q6H PRN PRN Reason: Nausea/Vomiting Potassium Chloride (K-Dur) 20 meq PO TID-[facility] Stop: 02/10/19 17:01 Last Admin: 02/10/19 11:37 Dose: 20 meq Propranolol HCl (Inderal) 10 mg PO BID [facility] Last Admin: 02/10/19 09:03 Dose: 10 mg Saccharomyces Boulardii (Florastor) 250 mg PO BID [facility] Last Admin: 02/10/19 09:03 Dose: 250 mg Sodium Chloride (Flush - Normal Saline) 10 ml IVF PRN PRN PRN Reason: Saline Flush Tramadol HCl (Ultram) 50 mg PO Q4H PRN PRN Reason: Moderate Pain (4-6) Last Admin: 02/10/19 10:39 Dose: 50 mg
--- NOTE | 2019-02-10 17:23 | CON ---
DATE OF CONSULTATION: 02/10/2019 HISTORY OF PRESENT ILLNESS: Mr. Morrow is a 58-year-old male, who was admitted for cellulitis of the right lower extremity with sepsis. The patient was admitted on 02/06, four days ago. He has been on IV antibiotics. The cellulitis that he had in the right lower extremity has resolved, but the patient continues to have pain and swelling in the right knee. The patient also has pain and swelling in the left knee as well and states that his left knee actually has more pain than the right. There was a concern that possibly he has some infection in the right knee and I was consulted for evaluation and possibly arthrocentesis, we sent the fluid for testing. PAST MEDICAL HISTORY: Includes coronary artery disease, post stent placement, type 2 diabetes, cirrhosis of the liver treated and cured, hepatitis B and C, esophageal varices, and hypertension. PHYSICAL EXAMINATION: VITAL SIGNS: The patient had a temperature up to 100.8 this morning. Blood pressure 179/74, pulse 98, and respiratory rate 20. EXTREMITIES: Physical exam of the right lower extremity and the left lower extremity, the patient has diffuse swelling in the right lower extremity. He does have a large effusion in the right knee and has a mild effusion in the left knee. The patient has pain with any attempts of motion of the right knee both actively or passively. He is able to flex the right knee 40 degrees with pain. There is no erythema in the right lower extremity. There are no open wounds. Both lower extremities are neurovascularly intact. DIAGNOSTIC DATA: X-rays of the right knee are pending. IMPRESSION: Bilateral knee pain. The right knee associated with possible cellulitis of the right lower extremity. PLAN: After prepping the right knee with Betadine using a small amount of lidocaine, the 18-gauge needle was used, 30 mL of cloudy appearing synovial fluid was removed, did have positive string sign. The fluid will be sent for Gram stain, cell count, culture, sensitivity, and to look for crystals such possibly gout. Additional treatment will depend on the findings of the fluid. Job ID: [id number]
[2019-02-11] MEDS: Acetaminophen/Codeine 30-300mg Tablet PO PRN ×4 (00:14→21:04)
[2019-02-11] MEDS: Vancomycin HCl 1.5 GM in Sodium Chloride 0.9% 250 ML 300 ML IVPB SCH ×2 (02:42→14:44)
[2019-02-11] MEDS: traMADol HCl 50 MG TAB PO PRN ×2 (04:08→12:47)
[2019-02-11] MEDS: HumaLOG 300 UNITS/3 ML VIAL SC PRN ×3 (05:30→16:45)
[2019-02-11 05:38] LABS: #Eosinphils 0.2 thou/uL (0.0-0.7); #Lymphocytes 1.9 thou/uL (1.20-3.40); #Monocytes 1.2 thou/uL (0.11-0.59); #Neutrophils 8.4 thou/uL (1.40-6.50); %Basophils 0.3 % (0.0-1.0); %Eosinophils 1.9 % (0.0-10.0); %Lymphocytes 15.9 % (21.0-51.0); %Monocytes 10.5 % (0.0-10.0); %Neutrophils 71.4 % (42.0-75.0); Hemoglobin 8.2 g/dL (14.0-18.0); Mean Corpuscular HGB CONC 33.3 g/dL (32.0-36.0); Mean Corpuscular Hemoglobin 28.9 pg (27.0-31.0); Mean Corpuscular Volume 86.8 fL (78.0-98.0); Mean Platelet Volume 7.4 fL (7.4-10.4); Platelet Count 374 thou/uL (130-400); RBC Distribution Width 13.2 % (11.5-14.5); Red Blood Cell (RBC) Count 2.83 mill/uL (4.70-6.10); White Blood Cell (WBC) Count 11.7 thou/uL (4.8-10.8)
[2019-02-11 05:43] LABS: INR-International Normal Ratio 1.1; PTT 48.6 SEC (22.9-36.1); Prothrombin Time 14.6 SEC (12.0-14.7)
[2019-02-11 05:55] LABS: ALT (SGPT) 16 U/L (8-55); AST (SGOT) 12 U/L (5-34); Albumin 2.9 g/dL (3.5-5.0); Alkaline Phosphatase 164 U/L (40-150); Anion Gap 11 mmol/L (10-20); BUN (Urea Nitrogen) 13 mg/dL (8.4-25.7); Bilirubin, Total 0.5 mg/dL (0.2-1.2); Calc. Creatinine Clearance 126 mL/min (70-130); Calcium 8.3 mg/dL (7.8-10.44); Carbon Dioxide 22 mmol/L (22-29); Chloride 105 mmol/L (98-107); Estimated GFR-MDRD Greater than 90; Globulin 3.4 g/dL (2.4-3.5); Glucose 195 mg/dL (70-105); Magnesium 1.6 mg/dL (1.6-2.6); Potassium 3.5 mmol/L (3.5-5.1); Protein, Total 6.3 g/dL (6.0-8.3); Sodium 134 mmol/L (136-145)
[2019-02-11] MEDS: Saccharomyces boulardii 250 MG CAP PO SCH ×2 (07:35→21:01)
[2019-02-11] MEDS: metFORMIN 500 MG TAB PO SCH ×2 (07:35→16:44)
[2019-02-11] MEDS: Lisinopril 20 MG TAB PO SCH (07:35)
[2019-02-11] MEDS: Aspirin 81 mg Enteric Coated Tablet PO SCH (07:35)
[2019-02-11] MEDS: NPH, Human Insulin Isophane 300 UNIT/3 ML VIAL SC SCH (07:36)
[2019-02-11] MEDS: Furosemide 40 MG TAB PO SCH ×2 (07:36→21:01)
[2019-02-11] MEDS: Colchicine 0.6 MG TAB PO SCH ×3 (10:21→21:01)
[2019-02-11] MEDS: Propranolol 10 MG TAB PO SCH ×2 (10:21→21:01)
[2019-02-11] MEDS: cefTRIAXone\\ROCEPHIN 2 GM in Sodium Chloride 0.9% 100 ML IVPB SCH (14:43)
--- NOTE | 2019-02-11 20:31 | PDOC.PN ---
- Subjective Encounter Start Date: 02/11/19 Encounter Start Time: 09:00 Patient seen and examined for Sepsis. Significant pain in B/L knees. Fever +. No CP/SOB/N/V or new rash. No other complaints. No overnight events - Objective Resuscitation Status - Order Detail: 02/05/19 21:08 Resuscitation Status Routine Resuscitation Status: FULL: Full Resuscitation MAR Reviewed: Yes Vital Signs & Weight: Vital Signs (12 hours) Temp Pulse Resp BP Pulse Ox 02/11/19 15:12 101.2 F H 77 17 139/57 L 90 L 02/11/19 11:36 99.2 F 87 20 127/63 98 02/11/19 08:46 99 Weight Admit Weight 192 lb 7.417 oz Weight 192 lb 7.417 oz Most Recent Monitor Data Heart Rate from ECG 80 NIBP 130/69 NIBP BP-Mean 89 Respiration from ECG 19 SpO2 93 I&O: 02/10/19 02/11/19 02/12/19 06:59 06:59 06:59 Intake Total 1999 1260 Output Total 2039 540 Balance -40 720 Result Diagrams: 02/11/19 05:16 02/11/19 05:16 Additional Labs: Accuchecks 02/11/19 02/11/19 02/11/19 19:52 15:17 11:41 POC Glucose 125 H 198 H 160 H 02/11/19 02/10/19 04:13 19:48 POC Glucose 194 H 160 H Phys Exam - Physical Examination Constitutional: NAD Respiratory: no wheezing, no rhonchi Cardiovascular: RRR, no rub Gastrointestinal: soft, positive bowel sounds Musculoskeletal: edema present B/L Knee tender on palpation Neurological: non-focal Dx/Plan - Plan DVT proph w/SCDs IMPRESSION: Acute gout flare involving knee joint Severe Sepsis with acute organ dysfunction/Septic shock due to RLE Cellulitis Hypokalemia/Hypomagnesemia B/L knee effusion - Septic arthritis ruled out DM2 CAD Cirrhosis Antibiotic associated diarrhea - C diff negative Chronic Anemia h/o Fourniers gangrene h/o Esophageal Varices PLAN: Start Colchicine Cont IV Atbx for now Await ID input Await culture sensitivity Cont other meds as below Review of Systems - Review of Systems Respiratory: negative: Cough, Dry, Shortness of Breath, Hemoptysis, SOB with Excertion, Pleuritic Pain, Sputum, Wheezing Cardiovascular: negative: chest pain, palpitations, orthopnea, paroxysmal nocturnal dyspnea, edema, light headedness, other - Medications/Allergies Allergies/Adverse Reactions: Allergies Allergy/AdvReac Type Severity Reaction Status Date / Time No Known Allergies Allergy Unverified 02/05/19 13:50 Medications: Current Medications Acetaminophen (Tylenol) 650 mg PO Q4H PRN PRN Reason: Headache/Fever/Mild Pain (1-3) Last Admin: 02/10/19 14:29 Dose: 650 mg Acetaminophen/Codeine Phosphate (Tylenol #3) 1 tab PO Q4H PRN PRN Reason: Moderate Pain (4-6) Last Admin: 02/11/19 16:44 Dose: 1 tab Aspirin (Ecotrin) 81 mg PO DAILY [facility] Last Admin: 02/11/19 07:35 Dose: 81 mg Cephalexin (Keflex) 500 mg PO Q8HR [facility] Colchicine (Colchicine) 0.6 mg PO TID [facility] Stop: 02/11/19 21:01 Last Admin: 02/11/19 14:40 Dose: 0.6 mg Colchicine (Colchicine) 0.6 mg PO BID [facility] Dextrose/Water (Dextrose 50%) 25 gm SLOW IVP PRN PRN PRN Reason: Hypoglycemia Furosemide (Lasix) 40 mg PO BID [facility] Last Admin: 02/11/19 07:36 Dose: 40 mg Glucagon (Glucagon) 1 mg IM PRN PRN PRN Reason: Hypoglycemia Dextrose/Water (D5w) 1,000 mls @ 0 mls/hr IV .Q0M PRN PRN Reason: Hypoglycemia Insulin Human Lispro (Humalog) 0 units SC .MILD SLIDING SCALE PRN PRN Reason: Mild Correctional Scale Last Admin: 02/11/19 16:45 Dose: 2 unit Insulin Human NPH (Humulin N) 10 unit SC QAM [facility] Last Admin: 02/11/19 07:36 Dose: 10 unit Lisinopril (Zestril) 20 mg PO DAILY [facility] Last Admin: 02/11/19 07:35 Dose: 20 mg Metformin HCl (Glucophage) 1,000 mg PO BID-[facility] Last Admin: 02/11/19 16:44 Dose: 1,000 mg Ondansetron HCl (Zofran Odt) 4 mg PO Q6H PRN PRN Reason: Nausea/Vomiting Ondansetron HCl (Zofran) 4 mg IVP Q6H PRN PRN Reason: Nausea/Vomiting Propranolol HCl (Inderal) 10 mg PO BID [facility] Last Admin: 02/11/19 10:21 Dose: 10 mg Saccharomyces Boulardii (Florastor) 250 mg PO BID [facility] Last Admin: 02/11/19 07:35 Dose: 250 mg Sodium Chloride (Flush - Normal Saline) 10 ml IVF PRN PRN PRN Reason: Saline Flush Last Admin: 02/11/19 14:45 Dose: 10 ml Tramadol HCl (Ultram) 50 mg PO Q4H PRN PRN Reason: Moderate Pain (4-6) Last Admin: 02/11/19 12:47 Dose: 50 mg
[2019-02-11] MEDS: Cephalexin 250 MG CAP PO SCH (21:00)
--- NOTE | 2019-02-11 21:32 | CON ---
DATE OF CONSULTATION: 02/11/2019 REASON FOR CONSULTATION: Cellulitis and inflammatory arthropathy. HISTORY OF PRESENT ILLNESS: A 58-year-old, first admission to this hospital, who has history of coronary artery disease, prior angioplasty with stent, type 2 diabetes, and chronic hepatitis B and C with prior treatment, although the patient has liver cirrhosis and portal hypertension with esophageal varices and developed worsening pain in the right lower extremity and fever. Initial findings included a temperature of 100.2, heart rate 103, and blood pressure 118/58. There is tenderness and redness in the right leg with decreased range of motion. No photos were taken from the initial presentation. The impression was possible sepsis, acute kidney injury, lactic acidosis, and cellulitis. The patient was managed with Zosyn and vancomycin. The initial white cell count was 21,000 and steadily improved down to 9.7, but then he developed the pain in both right and left side. The patient had an arthrocentesis which demonstrated 53,000 wbc's with predominance of mature neutrophils. The crystal analysis showed positive for urate crystals and cultures from the body fluid with no organisms seen and no growth at 24 hours. The patient is receiving ceftriaxone at this time and still vancomycin. The right leg inflammatory changes have improved markedly, now he is left with the right and left knee inflammatory changes with marked limitation of range of motion. Denies any headaches. No visual symptoms, sore throat, odynophagia, dysphagia. No cough, sputum production, or chest pain. No abdominal pain or diarrhea. No genitourinary symptoms. No neurological symptoms. PAST MEDICAL HISTORY: Includes type 2 diabetes, coronary artery disease with prior stenting, liver cirrhosis after treatment of hepatitis B and C, portal hypertension, and esophageal varices. PAST SURGICAL HISTORY: Groin inflammatory process. SOCIAL HISTORY: He is an inmate at [facility]. Former smoker. Use of cocaine in the past. FAMILY HISTORY: Noncontributory. ALLERGIES: NONE. OTHER MEDICATIONS: The antimicrobials include; 1. Ecotrin. 2. Colchicine. 3. Lasix. 4. Glucagon. 5. Zestril. 6. Glucophage. PHYSICAL EXAMINATION: VITAL SIGNS: T-max 101 and then 102.9, blood pressure 127/63, pulse 87, respirations 20, and O2 saturation 98%. SKIN: Shows complete resolution of inflammatory changes in the right leg. The right knee is swollen and tender on range of motion, but no erythema. Peripheral IV access. Voiding spontaneously in the urinal. No lymphadenopathy. HEENT: Ocular movements conjugate. Sclerae white. Pupils are equal. Oral cavity normal. Numerous teeth in place with quite a bit of decay and gum disease. NECK: Supple. No jugular venous distention. LUNGS: Symmetric. Clear breath sounds. HEART: S1 and S2, regular rate. No S3 or S4. ABDOMEN: Soft, not distended or tender. No ascites. No bladder distention. EXTREMITIES: Right knee is markedly tender with marked limitation range of motion. There is evidence of effusion. The left knee is also quite tender and with marked limitation range of motion as well. No other joint inflammatory process noted. Pulses 1+ in dorsalis pedis. Plantar responses are flexor. Strength appears symmetric in all 4 extremities. Cognitive function appears to be intact. LABORATORY DATA: Latest WBC 11.7, hemoglobin 8.2, platelets 374, 71% neutrophils. Sodium 134, creatinine is down to 0.79. Liver profile normal. Alkaline phosphatase 164, albumin 2.9. Urinalysis was essentially normal except for protein 100. IMAGING STUDIES: Knee x-ray with degenerative change. 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 DISCUSSION: Most likely the patient has exacerbation of gouty arthritis after admission to the hospital for an alternate diagnosis. The cellulitis itself appears to have resolved and I would encourage transition to oral Keflex to complete 10 days course and then switch him to suppressive Pen VK 250 mg twice daily for 1 year. Continue managing gout with colchicine. May benefit from intra-articular steroids, but I would wait until final results of the synovial fluid cultures are negative. Job ID: [id number]
[2019-02-12] MEDS: Acetaminophen/Codeine 30-300mg Tablet PO PRN ×5 (02:12→18:39)
[2019-02-12] MEDS: Cephalexin 250 MG CAP PO SCH ×3 (06:09→21:40)
[2019-02-12] MEDS: Saccharomyces boulardii 250 MG CAP PO SCH ×2 (08:59→19:23)
[2019-02-12] MEDS: metFORMIN 500 MG TAB PO SCH ×2 (08:59→16:47)
[2019-02-12] MEDS: Colchicine 0.6 MG TAB PO SCH ×2 (08:59→19:23)
[2019-02-12] MEDS: Propranolol 10 MG TAB PO SCH ×2 (08:59→19:23)
[2019-02-12] MEDS: Lisinopril 20 MG TAB PO SCH (09:00)
[2019-02-12] MEDS: Aspirin 81 mg Enteric Coated Tablet PO SCH (09:00)
[2019-02-12] MEDS: Furosemide 40 MG TAB PO SCH ×2 (09:00→19:23)
[2019-02-12] MEDS: NPH, Human Insulin Isophane 300 UNIT/3 ML VIAL SC SCH (09:00)
--- NOTE | 2019-02-12 20:48 | PDOC.PN ---
- Subjective Encounter Start Date: 02/12/19 Encounter Start Time: 09:30 Patient seen and examined for Sepsis/Gout. Knee pain improving with Colchicine. No SOB/cough. No new complaints. No overnight events - Objective Resuscitation Status - Order Detail: 02/05/19 21:08 Resuscitation Status Routine Resuscitation Status: FULL: Full Resuscitation MAR Reviewed: Yes Vital Signs & Weight: Vital Signs (12 hours) Temp Pulse Resp BP BP Pulse Ox 02/12/19 19:33 94 L 02/12/19 19:14 98.5 F 71 18 152/74 H 91 L 02/12/19 15:05 99.1 F 73 18 143/69 H 91 L 02/12/19 11:27 98.1 F 77 18 137/70 91 L 02/12/19 09:00 165/70 H Weight Admit Weight 192 lb 7.417 oz Weight 192 lb 7.417 oz Most Recent Monitor Data Heart Rate from ECG 80 NIBP 130/69 NIBP BP-Mean 89 Respiration from ECG 19 SpO2 93 I&O: 02/11/19 02/12/19 02/13/19 06:59 06:59 06:59 Intake Total 1260 960 Output Total 540 450 Balance 720 510 Result Diagrams: 02/11/19 05:16 02/11/19 05:16 Additional Labs: Accuchecks 02/12/19 02/12/19 02/12/19 15:10 11:05 06:13 POC Glucose 183 H 211 H 170 H Phys Exam - Physical Examination Constitutional: NAD Respiratory: no wheezing, no rhonchi Cardiovascular: RRR, no rub Gastrointestinal: soft, non-tender, positive bowel sounds Musculoskeletal: no edema knee swelling improving Neurological: non-focal Dx/Plan - Plan DVT proph w/SCDs IMPRESSION: Acute gout flare involving B/L knee joint Severe Sepsis with acute organ dysfunction/Septic shock due to RLE Cellulitis - on PO Atbx Hypokalemia/Hypomagnesemia B/L knee effusion - Septic arthritis ruled out DM2 CAD Cirrhosis Antibiotic associated diarrhea - C diff negative Chronic Anemia h/o Fourniers gangrene h/o Esophageal Varices PLAN: Cont Colchicine for 2-3 days then PRN Cont Keflex DC to Facility Will probably need infirmary due to significant knee pain Repeat cultures negative Cont other meds as below Review of Systems - Review of Systems Respiratory: negative: Cough, Dry, Shortness of Breath, Hemoptysis, SOB with Excertion, Pleuritic Pain, Sputum, Wheezing Cardiovascular: negative: chest pain, palpitations, orthopnea, paroxysmal nocturnal dyspnea, edema, light headedness, other Gastrointestinal: negative: Nausea, Vomiting, Abdominal Pain, Diarrhea, Constipation, Melena, Hematochezia, Other Genitourinary: negative: Dysuria, Frequency, Incontinence, Hematuria, Retention , Other - Medications/Allergies Allergies/Adverse Reactions: Allergies Allergy/AdvReac Type Severity Reaction Status Date / Time No Known Allergies Allergy Unverified 02/05/19 13:50 Medications: Current Medications Acetaminophen (Tylenol) 650 mg PO Q4H PRN PRN Reason: Headache/Fever/Mild Pain (1-3) Last Admin: 02/10/19 14:29 Dose: 650 mg Acetaminophen/Codeine Phosphate (Tylenol #3) 1 tab PO Q4H PRN PRN Reason: Moderate Pain (4-6) Last Admin: 02/12/19 18:39 Dose: 1 tab Aspirin (Ecotrin) 81 mg PO DAILY [facility] Last Admin: 02/12/19 09:00 Dose: 81 mg Cephalexin (Keflex) 500 mg PO Q8HR [facility] Last Admin: 02/12/19 19:23 Dose: 500 mg Colchicine (Colchicine) 0.6 mg PO BID [facility] Last Admin: 02/12/19 19:23 Dose: 0.6 mg Dextrose/Water (Dextrose 50%) 25 gm SLOW IVP PRN PRN PRN Reason: Hypoglycemia Furosemide (Lasix) 40 mg PO BID [facility] Last Admin: 02/12/19 19:23 Dose: 40 mg Glucagon (Glucagon) 1 mg IM PRN PRN PRN Reason: Hypoglycemia Dextrose/Water (D5w) 1,000 mls @ 0 mls/hr IV .Q0M PRN PRN Reason: Hypoglycemia Insulin Human Lispro (Humalog) 0 units SC .MILD SLIDING SCALE PRN PRN Reason: Mild Correctional Scale Last Admin: 02/11/19 16:45 Dose: 2 unit Insulin Human NPH (Humulin N) 10 unit SC QAM [facility] Last Admin: 02/12/19 09:00 Dose: 10 unit Lisinopril (Zestril) 20 mg PO DAILY [facility] Last Admin: 02/12/19 09:00 Dose: 20 mg Metformin HCl (Glucophage) 1,000 mg PO BID[facility] Last Admin: 02/12/19 16:47 Dose: 1,000 mg Ondansetron HCl (Zofran Odt) 4 mg PO Q6H PRN PRN Reason: Nausea/Vomiting Ondansetron HCl (Zofran) 4 mg IVP Q6H PRN PRN Reason: Nausea/Vomiting Propranolol HCl (Inderal) 10 mg PO BID [facility] Last Admin: 02/12/19 19:23 Dose: 10 mg Saccharomyces Boulardii (Florastor) 250 mg PO BID [facility] Last Admin: 02/12/19 19:23 Dose: 250 mg Sodium Chloride (Flush - Normal Saline) 10 ml IVF PRN PRN PRN Reason: Saline Flush Last Admin: 02/11/19 14:45 Dose: 10 ml Tramadol HCl (Ultram) 50 mg PO Q4H PRN PRN Reason: Moderate Pain (4-6) Last Admin: 02/11/19 12:47 Dose: 50 mg
[2019-02-13] MEDS: HumaLOG 300 UNITS/3 ML VIAL SC PRN ×2 (06:10→12:12)
[2019-02-13] MEDS: Cephalexin 250 MG CAP PO SCH ×3 (06:10→21:18)
[2019-02-13] MEDS: Aspirin 81 mg Enteric Coated Tablet PO SCH (08:06)
[2019-02-13] MEDS: Furosemide 40 MG TAB PO SCH ×2 (08:06→19:31)
[2019-02-13] MEDS: metFORMIN 500 MG TAB PO SCH ×2 (08:06→16:51)
[2019-02-13] MEDS: Lisinopril 20 MG TAB PO SCH (08:06)
[2019-02-13] MEDS: Colchicine 0.6 MG TAB PO SCH ×2 (08:06→19:31)
[2019-02-13] MEDS: Propranolol 10 MG TAB PO SCH ×2 (08:07→19:31)
[2019-02-13] MEDS: Saccharomyces boulardii 250 MG CAP PO SCH ×2 (08:07→19:32)
[2019-02-13] MEDS: NPH, Human Insulin Isophane 300 UNIT/3 ML VIAL SC SCH (08:08)
[2019-02-13] MEDS: Acetaminophen/Codeine 30-300mg Tablet PO PRN ×2 (08:15→14:56)
[2019-02-13] MEDS ORDERED: predniSONE 20 MG TAB PO SCH (14:30)
[2019-02-13 20:50] VITALS: BP 128/71; TEMP 97.8
[2019-02-14] MEDS ORDERED: predniSONE 20 MG TAB PO SCH (08:00)
--- NOTE | 2019-02-14 09:41 | DIS ---
DATE OF ADMISSION: 02/05/2019 DATE OF DISCHARGE: 02/13/2019 DISCHARGE DISPOSITION: The patient is an inmate. The patient left on February 13, 2019 at 2200 hours. INPATIENT CONSULTANTS: 1. Critical Care, Dr. Otto. 2. Infectious Disease, Dr. Smith. 3. Orthopedics, Dr. Kendrick. DISCHARGE MEDICATIONS: 1. Keflex 500 mg every 8 hourly for 10 days. 2. Tylenol 325 mg every 4 hourly for pain. 3. Colchicine 0.6 mg twice daily for 3 days, then as needed. 4. Prednisone 20 mg twice daily for 3 days, then discontinue. 5. Inderal 10 mg b.i.d. 6. Florastor 250 mg b.i.d. 7. Metformin 1000 mg b.i.d. 8. Lisinopril 20 mg daily. 9. Novolin N 10 units daily. 10. Lasix 40 mg b.i.d. 11. Aspirin 81 mg daily. BRIEF HOSPITAL COURSE: The patient is a 58-year-old male with coronary artery disease, diabetes mellitus type 2, cirrhosis, and hypertension, presented to the emergency room with right lower extremity swelling of one day duration. His initial vital signs in the emergency room showed temperature 102.1 with respirations of 20, pulse rate of 89 with blood pressure of 105/56. While in the emergency room, he dropped his blood pressure to 70/36. A central line was placed and he was started on Levophed. He was placed on broad-spectrum antibiotics. He was monitored in the intensive care unit. Right lower extremity ultrasound was negative for DVT. His blood pressure later improved. Levophed was discontinued. He was then transferred to the medical floor. While on the medical floor, he started spiking fever along with bilateral knee swelling. Orthopedic Team was consulted. He underwent arthrocentesis of the right knee. 30 mL of cloudy appearing synovial fluid was removed. Synovial fluid cultures were negative. His repeat blood cultures also remained negative. Synovial fluid and crystal analysis was positive for monosodium urate crystal. He was started on colchicine with minimal improvement. Later on, prednisone was added. Due to significant knee pain, he was referred to [facility]. He left at 2200 hours last night. Plan of care was discussed with the patient in detail. He stated understanding. FINAL DIAGNOSES: 1. Severe sepsis with acute organ dysfunction/septic shock secondary to right lower extremity cellulitis. 2. Gout flare involving bilateral knee joint. 3. Hypokalemia, replaced. 4. Hypomagnesemia. 5. Diabetes mellitus, type 2. 6. Coronary artery disease. 7. History of cirrhosis. 8. Antibiotic-associated diarrhea. C difficile was negative. 9. Chronic anemia. 10. History of Theodore's gangrene. 11. Esophageal varices. TIME SPENT: Total time coordinating the discharge of this patient was 37 minutes. Job ID: [id number]
== END 2019-02-13 22:10 | DRG 871 ==
LOC: ERS 13:04 → EEVIPCON 13:04 → CCU 22:31 → T4-A 02-06 16:19
PROVIDERS: ADMIT Hospitalist; ATTEND Hospitalist
PROC: 0S9C3ZX Drainage of Right Knee Joint, Percutaneous Approach, Diagnostic (ICD-10-PCS; principal; 2019-02-10)
DX: A41.9 Sepsis, unspecified organism (principal); R65.21 Severe sepsis with septic shock; L03.115 Cellulitis of right lower limb; K52.1 Toxic gastroenteritis and colitis; N17.9 Acute kidney failure, unspecified; E87.2 Acidosis; I25.10 Atherosclerotic heart disease of native coronary artery without angina pectoris; K74.60 Unspecified cirrhosis of liver; D64.9 Anemia, unspecified; M10.9 Gout, unspecified; E11.65 Type 2 diabetes mellitus with hyperglycemia; M25.461 Effusion, right knee; E87.6 Hypokalemia; E83.42 Hypomagnesemia; T36.95XA Adverse effect of unspecified systemic antibiotic, initial encounter; Z95.5 Presence of coronary angioplasty implant and graft; Z86.19 Personal history of other infectious and parasitic diseases; Z87.19 Personal history of other diseases of the digestive system; Z79.4 Long term (current) use of insulin; Z87.891 Personal history of nicotine dependence; Z79.82 Long term (current) use of aspirin; Z79.899 Other long term (current) drug therapy
CPT/HCPCS: 36415; 36416; 36556; 71045; 80048; 80053; 80202; 81003; 81015; 83605; 83735; 85025; 85060; 85610; 85730; 86140; 87040; 87070; 87086; 87205; 87324; 87449; 89051; 89060; 93005; 96365; 96366; 96367; 96375; J0696; J1650; J1815; J2001; J2405; J2543; J2550; J3370; J3475; J3490; J7050; J7512